=== PATIENT | female | born 1990 | race Caucasian/White ===

== ENCOUNTER 2016-11-18 11:25 | Emergency (ER) | payer MEDICAID ==
[~2016-11-18] VITALS: Ht 165.1 cm; Wt 62.6 kg
[2016-11-18 11:44] LABS: *BILIRUBIN,URIN NEGATIVE (NEGATIVE); *BLOOD, URINE NEGATIVE (NEGATIVE); *CLARITY,URINE CLEAR (CLEAR); *COLOR,URINE YELLOW (YELLOW); *KETONES,URINE NEGATIVE (NEGATIVE); *PROTEIN,URINE NEGATIVE (NEGATIVE); *UROBILINOGEN,URINE 0.2 E.U./dl (NORMAL); LEUKOCYTE ESTERASE ,URINE TRACE (NEGATIVE); NITRITE, URINE NEGATIVE (NEGATIVE); PH,URINE 7.5 (5.0-8.0); UGLUCOSE NEGATIVE (NEGATIVE)
[2016-11-18 11:50] LABS: *URINE HCG, QUAL NEGATIVE (NEGATIVE)
[2016-11-18 11:52] LABS: BASOPHILS % (AUTO) 0.5 % (0.0-2.0); EOSINOPHILS % (AUTO) 0.7 % (0.0-7.0); HEMATOCRIT 39.8 % (37-47); HEMOGLOBIN 13.1 G/DL (12.0-16.0); LYMPHOCYTES # (AUTO) 1.4 K/UL (0.8-4.8); LYMPHOCYTES % (AUTO) 29.8 % (20.5-51.5); MEAN CORPUSCULAR HEMOGLOBIN 28.6 UUG (27.0-31.0); MEAN CORPUSCULAR HGB CONC 33 g/dL (32.0-37.0); MEAN CORPUSCULAR VOLUME 87.2 FL (81.0-99.0); MONOCYTES # (AUTO) 0.4 K/UL (0.1-1.30); MONOCYTES % (AUTO) 8.3 % (0.0-11.0); NEUTROPHILS # (AUTO) 2.8 K/UL (1.8-8.9); NEUTROPHILS % (AUTO) 60.7 % (38.5-71.5); PLATELET COUNT (AUTO) 247 K/UL (150-450); RED BLOOD CELL COUNT(AUTO) 4.57 MIL/UL (4.2-5.4); WHITE BLOOD COUNT (AUTO) 4.6 K/UL (4.0-11.2)
[2016-11-18 11:55] LABS: BACTERIA,URINE NONE SEEN /HPF (NONE SEEN); RBC,URINE 0-3 /HPF (0-3); SQUAMOUS EPITHELIAL CELL,UR FEW /HPF (NONE SEEN); WBC,URINE 0-3 /HPF (0-3)
[2016-11-18 12:02] LABS: POTASSIUM 4.5 mmol/L (3.5-5.1)
[2016-11-18 12:06] LABS: CREATININE 0.8 mg/dL (0.6-1.3)
--- NOTE | 2016-11-18 12:29 | NUR ---
Patient discharged to home in stable conditon. Written and verbal after care instructions given. Patient verbalizes understanding of instructions.
[2016-11-18 12:30] VITALS: BP 108/72
== END 2016-11-18 12:31 | disposition home or self-care (01) ==
LOC: ER 11:25
DX: R55 Syncope and collapse (principal); R42 Dizziness and giddiness
CPT/HCPCS: 36415; 70030-TC; 84703; 85025; 93005; A4663

== ENCOUNTER 2019-12-05 20:03 | Emergency (ER) | payer MEDICAID ==
[~2019-12-05] VITALS: Ht 165.1 cm; Wt 54.4 kg
--- NOTE | 2019-12-05 20:15 | NUR ---
Patient provided urine sample, sent to lab.
--- NOTE | 2019-12-05 20:16 | NUR ---
Dr. Henderson at bedside for MSE.
[2019-12-05 20:25] LABS: *BILIRUBIN,URIN NEGATIVE (NEGATIVE); *BLOOD, URINE NEGATIVE (NEGATIVE); *CLARITY,URINE CLEAR (CLEAR); *COLOR,URINE YELLOW (YELLOW); *KETONES,URINE NEGATIVE (NEGATIVE); *UROBILINOGEN,URINE 0.2 E.U./dl (NORMAL); LEUKOCYTE ESTERASE ,URINE NEGATIVE (NEGATIVE); NITRITE, URINE NEGATIVE (NEGATIVE); UGLUCOSE NEGATIVE (NEGATIVE)
[2019-12-05 20:26] LABS: *URINE HCG, QUAL NEGATIVE (NEGATIVE)
[2019-12-05 20:49] LABS: BASOPHILS % (AUTO) 0.6 % (0.0-2.0); EOSINOPHILS # (AUTO) 0.1 K/uL (0.0-0.7); HEMATOCRIT 37.7 % (31.2-41.9); HEMOGLOBIN 12.6 g/dL (10.9-14.3); LYMPHOCYTES # (AUTO) 1.8 K/uL (20.0-40.0); MEAN CORPUSCULAR HEMOGLOBIN 29.2 uug (24.7-32.8); MEAN CORPUSCULAR HGB CONC 33 g/dL (32.3-35.6); MEAN CORPUSCULAR VOLUME 87.6 fL (75.5-95.3); MONOCYTES # (AUTO) 0.6 K/uL (2.0-10.0); NEUTROPHILS # (AUTO) 2.8 K/uL (1.8-8.9); NEUTROPHILS % (AUTO) 52.4 % (38.5-71.5); PLATELET COUNT (AUTO) 262 K/uL (179-408); WHITE BLOOD COUNT (AUTO) 5.4 K/uL (3.8-11.8)
[2019-12-05 20:55] LABS: CREATININE 0.7 mg/dL (0.6-1.3); POTASSIUM 4.5 mmol/L (3.5-5.1)
[2019-12-05 21:00] LABS: BILIRUBIN,DIRECT 0.1 mg/dL (0.0-0.2); BILIRUBIN,TOTAL 0.3 mg/dL (0.2-1.0); TOTAL PROTEIN, SERUM 6.6 g/dL (6.4-8.2)
--- NOTE | 2019-12-05 21:00 | NUR ---
Ultrasound at bedside.
[2019-12-05] MEDS ORDERED: IBUPROFEN 600 MG TABLET PO ONE (21:30)
[2019-12-05] MEDS ORDERED: IBUPROFEN 600 MG TABLET ONE (21:33)
[2019-12-05] MEDS ORDERED: ENOX40DI SQ (21:35)
[2019-12-05 21:57] VITALS: BP 131/65
--- NOTE | 2019-12-05 21:57 | NUR ---
Patient discharged to home in stable condition. Written and verbal after care instructions given. Patient verbalizes understanding of instructions. Stressed follow up or return to ER for worsening s/s. Patient out of ER with steady gait, no acute signs of distress, VSS, all belongings taken.
== END 2019-12-05 21:58 | disposition home or self-care (01) ==
LOC: ER 20:06
DX: R10.2 Pelvic and perineal pain (principal); N83.202 Unspecified ovarian cyst, left side; Z82.49 Family history of ischemic heart disease and other diseases of the circulatory system; Z86.718 Personal history of other venous thrombosis and embolism
CPT/HCPCS: 36415; 76856; 84703; 85025; A4663

== ENCOUNTER 2021-01-23 16:41 | Emergency (ER) | payer MEDICAID ==
[~2021-01-23] VITALS: Ht 172.7 cm; Wt 65.8 kg
[~2021-01-23 16:41] MED LIST: ENOX40DI SQ
[2021-01-23 21:22] LABS: MEAN CORPUSCULAR HEMOGLOBIN 29.5 uug (24.7-32.8); MEAN CORPUSCULAR VOLUME 87.6 fL (75.5-95.3); PLATELET COUNT (AUTO) 123 K/uL (179-408)
[2021-01-23 21:30] LABS: CREATININE 0.6 mg/dL (0.6-1.3); POTASSIUM 4.2 mmol/L (3.5-5.1)
[2021-01-23 21:36] LABS: BILIRUBIN,TOTAL 0.2 mg/dL (0.2-1.0); TOTAL PROTEIN, SERUM 7.1 g/dL (6.4-8.2)
--- NOTE | 2021-01-23 21:38 | NUR ---
Elena espinosa into do procedure.
[2021-01-23] MEDS ORDERED: ENOX40DI SQ (21:43)
[2021-01-23 22:12] LABS: *BILIRUBIN,URIN NEGATIVE (NEGATIVE); *BLOOD, URINE NEGATIVE (NEGATIVE); *CLARITY,URINE CLEAR (CLEAR); *COLOR,URINE YELLOW (YELLOW); *KETONES,URINE TRACE (NEGATIVE); *UROBILINOGEN,URINE 0.2 E.U./dl (NORMAL); LEUKOCYTE ESTERASE ,URINE NEGATIVE (NEGATIVE); NITRITE, URINE NEGATIVE (NEGATIVE); PH,URINE 6.5 (5.0-8.0); UGLUCOSE NEGATIVE (NEGATIVE)
[2021-01-23 23:23] VITALS: BP 107/64
--- NOTE | 2021-01-23 23:23 | NUR ---
Patient discharged to home in stable condition. Written and verbal after care instructions given. Patient verbalizes understanding of instructions. Stressed follow up or return to ER for worsening s/s.
== END 2021-01-23 23:23 | disposition home or self-care (01) ==
LOC: ER 16:42
DX: O26.891 Other specified pregnancy related conditions, first trimester (principal); R10.13 Epigastric pain; Z3A.01 Less than 8 weeks gestation of pregnancy; Z86.718 Personal history of other venous thrombosis and embolism; Z79.01 Long term (current) use of anticoagulants
CPT/HCPCS: 36415; 76815; 85025; 93005; A4663